=== PATIENT | male | born 1985 | race Caucasian/White ===

== ENCOUNTER 2023-05-22 18:50 | Emergency (ER) | payer OTHER ==
[2023-05-22] VITALS (13 sets, daily range): BP systolic 127–157; BP diastolic 85–110
[~2023-05-22] VITALS: Ht 177.8 cm; Wt 95.0 kg
[~2023-05-22 18:50] MED LIST: BUPROPION HCL150 M2 PO; BUPROPION HCL150 MG PO; BUPROPION150 M3 PO; BUPROPION75 MG PO; DEPAKOTE250 MG PO; DEPAKOTE500 MG PO; INDERAL10 M1 PO; LEXAPRO5 MG PO; SEROQUEL50 MG PO; VENLAFAXINE H37.5 M1 PO; VENLAFAXINE HCL75 M1 PO; VENLAFAXINE HCL75 MG PO; WELLBUTRIN XL150 MG PO; WELLBUTRIN XL300 MG PO; WELLBUTRIN150 M1 PO; ZOFRAN4 MG/TAB PO
[2023-05-22] MEDS ORDERED: HYDROmorphone HCL 2 MG/AMP IV ONE ×4 (19:10→21:35)
[2023-05-22] MEDS ORDERED: ONDANSETRON HCl 4 MG/2 ML SDV IV ONE (19:10)
[2023-05-22] MEDS ORDERED: MIDAZOLAM HCL 2 MG/2 ML VIAL IV ONE (20:30)
[2023-05-22] MEDS ORDERED: PERCOCET 5/321 COMBO PO (21:04)
[2023-05-22] MEDS ORDERED: PERCOCET 5/325M1 TAB PO (21:28)
[2023-05-22] MEDS ORDERED: ORPHENADRINE CITRATE 30 MG/ML AMP IM ONE (21:35)
== END 2023-05-22 22:06 | disposition home or self-care (01) | DRG 563 ==
LOC: ED 18:50
PROC: 0QSHXZZ Reposition Left Tibia, External Approach (ICD-10-PCS; principal; 2023-05-22)
PROC: 0QSKXZZ Reposition Left Fibula, External Approach (ICD-10-PCS; 2023-05-22)
DX: S82.302A Unspecified fracture of lower end of left tibia, initial encounter for closed fracture (principal); S82.832A Other fracture of upper and lower end of left fibula, initial encounter for closed fracture; S60.511A Abrasion of right hand, initial encounter; S90.912A Unspecified superficial injury of left ankle, initial encounter; I10 Essential (primary) hypertension; F31.9 Bipolar disorder, unspecified; F17.200 Nicotine dependence, unspecified, uncomplicated; Y04.0XXA Assault by unarmed brawl or fight, initial encounter
CPT/HCPCS: J0690